=== PATIENT | female | born 1965 | race Caucasian/White ===

== ENCOUNTER 2017-10-01 22:59 | Emergency (ER) | payer MEDICAID, OTHER ==
[2017-10-01] MEDS ORDERED: TDAP ADULT 0.5 ML INJ (BOOSTRIX) IM ONE (23:50)
--- NOTE | 2017-10-01 23:50 | EDPHY ---
General Time Seen by Provider: 10/01/17 23:39 Narrative: CHIEF COMPLAINT: Laceration to thumb HISTORY OF PRESENT ILLNESS: Patient presents with complaints of left thumb laceration will cutting watermelon. This happened within the past hour. Moderate bleeding. Moderately painful. Improved at rest. Worse with moving the thumb. No numbness or tingling. No weakness. Not sure if she has any difficulty straightening or bending the thumb. No injury elsewhere. Tetanus is questionable. No other associated complaints or modifying factors. TIME OF INJURY: Less than 1 hr prior to arrival TETANUS STATUS: Uncertain MEDICAL/SURGICAL/SOCIAL HISTORY: Denies any pertinent medical history. Occasional smoker. 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 Brisk cap refill the left thumb. Neurological: A&O, light sensory symmetric in radial, ulnar and median distributions. Interossei strength symmetric. No wrist drop. Skin: Warm and dry, no rash. There is a 2.5 cm curvilinear laceration over the dorsum of the left thumb. No obvious extensor tendon injury. There is no injury to the nail bed. No pulsatile bleeding or foreign body. Extremities: Moderate tenderness in the left thumb over the laceration only. Range of motion of the fingers and hand symmetric DIFFERENTIAL DIAGNOSES: Including but not limited to laceration, complex laceration, laceration with tendon injury MDM: 11:50 p.m. Laceration to the left thumb that has been anesthetized. I will irrigate this and further evaluate for possible tendon injury. 12:25 a.m. Wound has been irrigated re-evaluated. I have a clear view of the wound bed, there is no injury to the extensor tendons of the thumb. 12:45 a.m. Wound has been closed without difficulty. Excellent approximation. She has full extension of the left thumb including at the MTP and interphalangeal joint. She will be placed in a bulky dressing with splint. We discussed wound care. We discussed ED precautions. We discussed returning here in 7-10 days for suture removal. I have answered all of her questions. I provided short course of pain medication by prepack. Discharged home in stable condition. PROCEDURE: Laceration repair Consent: Verbal Location: Left thumb, dorsum at the base of the MTP Length of repair: 2.5 cm Complexity: Complex Layer involvement: Single Anesthesia: Local. 1% lidocaine without epinephrine. 6 mL Irrigation: Extensive Debridement: None Procedure description: Following good anesthesia, the wound was copiously irrigated. Wound bed was explored with a sterile glove, and there is no foreign body noted. I do not appreciate any injury to the underlying extensor tendons. No foreign body. Wound borders were approximated well with good hemostasis. Tolerated well without complication. Suture/Staple material: 4-0 Prolene, 6 simple interrupted sutures Wound care: Routine as discussed Suture/Staple removal: 7-10 Days SUPERVISION: This patient was independently evaluated without direct involvement of or examination by the attending physician. ED Precautions: Worsening pain. Erythema, edema, cyanosis, pallor, paresthesia or anesthesia. - History Smoking Status: Heavy smoker - Objective Vital Signs: Initial Vital Signs Temperature (C) 97.9 F 10/01/17 23:02 Heart Rate 102 H 10/01/17 23:02 Respiratory Rate 16 10/01/17 23:02 Blood Pressure 146/108 H 10/01/17 23:02 O2 Sat (%) 98 10/01/17 23:02 O2 Delivery Mode Room Air Allergies/Adverse Reactions: No Known Allergies Allergy (Unverified 10/01/17 23:05) Home Medications: Medication Instructions Recorded NK [No Known Home Meds] 10/01/17 Departure - Departure Disposition: Home, Routine, Self-Care Clinical Impression: Laceration of left thumb without foreign body without damage to nail Qualifiers: Encounter type: initial encounter Qualified Code(s): S61.012A - Laceration without foreign body of left thumb without damage to nail, initial encounter Condition: Good Instructions: Laceration (ED), Care For Your Stitches (ED), Hydrocodone/ Acetaminophen (By mouth) Additional Instructions: 1. Keep your splint in place for the duration of the sutures 2. Remove her dressing once daily for evaluation of the wound in to wash the wound with soap water. 3. Thin layer bacitracin to the wound once daily 4. Follow up here in 7-10 days for suture removal 5. Return here for any signs of infection as discussed and demonstrated Referrals: Maria A Pulliam MD [Medical Doctor] - As per Instructions Physician,Emergency DeptMD [Medical Doctor] - As per Instructions
[2017-10-02 00:38] VITALS: BP 127/93
[2017-10-02] MEDS ORDERED: HYDROCOD/APAP 5/325 PREPACK#6 BTL TAKEHOME ONE (00:42)
== END 2017-10-02 01:00 | disposition home or self-care (01) ==
PROC: 0HQGXZZ Repair Left Hand Skin, External Approach (ICD-10-PCS; principal; 2017-10-01)
DX: S61.012A Laceration without foreign body of left thumb without damage to nail, initial encounter (principal); Z23 Encounter for immunization; W26.8XXA Contact with other sharp object(s), not elsewhere classified, initial encounter; Y93.89 Activity, other specified; F17.200 Nicotine dependence, unspecified, uncomplicated
CPT/HCPCS: L3925

== ENCOUNTER → 2018-04-13 | Outpatient (CLI) | payer MEDICAID ==
[~2018-04-13] MED LIST: IOHEXOL 300 mgI/ML (OMNIPAQUE) 150 ML BTL IV ONE
== END ==
LOC: FIMAGING 08:22
PROVIDERS: ATTEND Internal Medicine Gastroenterology
DX: D12.9 Benign neoplasm of anus and anal canal (principal)
CPT/HCPCS: Q9967

== ENCOUNTER → 2018-05-04 | Outpatient (CLI) | payer MEDICAID | LOC: FIMAGING 09:15 | PROVIDERS: ATTEND Physician Assistant Medical | DX: Z12.31 Encounter for screening mammogram for malignant neoplasm of breast (principal); Z85.048 Personal history of other malignant neoplasm of rectum, rectosigmoid junction, and anus ==

== ENCOUNTER 2018-06-02 19:37 | Emergency (ER) | payer MEDICAID ==
--- NOTE | 2018-06-02 20:04 | EDPHY ---
H & P Time Seen by Provider: 06/02/18 19:44 HPI/ROS: CHIEF COMPLAINT: Coughing and short of breath HISTORY OF PRESENT ILLNESS: Patient is tobacco smoker, was diagnosed with rectal cancer the end of March when she had blood in her stool. This was a [facility]. She has an oncologist there name Kiley Yony, phone [phone] I called left a message. She has had worsening cough since she was exposed to some chemical from a wood stain in March. She has had a worsening cough and shortness of breath and finished a 10 day course of prednisone 2 weeks ago. 2 weeks ago she had a chest CT at [facility] with IV contrast, it is unknown if this was an angiogram. She had a left axillary lymph node biopsy which on Thursday she was told could be cancer. She presents today with 2 weeks of pressure in her chest. 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 Much worse with exertion. This is not associated with hemoptysis or leg swelling or fever chills. REVIEW OF SYSTEMS: Eye: no change in vision ENT: no sore throat Cardiac: no chest pain or syncope Pulmonary: HPI Abdomen: no vomiting, diarrhea, abdominal pain Musculoskeletal: no back pain Skin: no rash Neuro: no headache Constitutional: no fever : no urinary symptoms A comprehensive 10 point review of systems is otherwise negative aside from elements mentioned in the history of present illness. PAST MEDICAL HISTORY: As in HPI Social history: Tobacco smoker General Appearance: Alert and conversant, cooperative. Eyes: No scleral icterus. ENT, Mouth: Normal mucous membranes. Respiratory: Normal respiratory effort, breath sounds equal, lungs are clear to auscultation. No wheezing and speaks in full sentences. Cardiovascular: Regular rate and rhythm. Gastrointestinal: Abdomen is soft and non tender. Neurological: Alert, face symmetric, normal motor and sensory in extremities. Skin: Warm and dry, no rashes. Musculoskeletal: No peripheral edema. Psychiatric: Not agitated. Emergency Department course/MDM: Patient presents with worsening severe cough and shortness of breath. Differential includes pulmonary embolism, pneumonia, chemical bronchitis, the CHF or ACS. Plan for EKG and troponin, D-dimer and BNP. 2037: D-dimer elevated, CT angiography discussed and consented. 2041: Discussed with Dr. Bhakta on phone, possibly adenocarcinoma lung as primary. Her CT of the chest was for staging and was not an angiogram. 2155: Discussed with hospitalist from [facility], requested admission, Dr. Tena refused to accept in transfer. 2204: Patient offered admission at [facility] but she declined. She would prefer to go home and follow up with her oncologist tomorrow. I warned her that I did not have a good solution for shortness of breath but we agreed to give her 6 hydrocodone for cough at night. I think ACS or pulmonary embolism or pneumonia is unlikely. Smoking Status: Heavy smoker Constitutional: Initial Vital Signs Temperature (C) 37.1 C 06/02/18 19:54 Heart Rate 80 06/02/18 19:54 Respiratory Rate 16 06/02/18 19:54 Blood Pressure 130/89 H 06/02/18 19:54 O2 Sat (%) 95 06/02/18 19:54 O2 Delivery Mode Room Air Allergies/Adverse Reactions: No Known Allergies Allergy (Unverified 10/01/17 23:05) Home Medications: Medication Instructions Recorded NK [No Known Home Meds] 10/01/17 Medical Decision Making - Diagnostics EKG Interpretation: 12-lead EKG interpreted by me; official reading is in computer system. My interpretation is sinus rhythm rate 74 no ischemic changes, normal. 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 Differential diagnosis includes sarcoidosis. General information for patients regarding this examination can be found at [email or web address]. If you have questions or comments about this report, please contact me at [phone] (hospital) or [phone] (cell). Imaging: Discussed imaging studies w/ body recall instructor Radiologist Differential Diagnosis: Differential diagnosis considered for shortness of breath including but not limited to pulmonary infectious process, COPD, asthma, pulmonary embolus and congestive heart failure. - Data Points Laboratory Results: Laboratory Results 06/02/18 20:13 06/02/18 20:13 06/02/18 06/02/18 06/02/18 20:18 20:13 20:13 WBC RBC Hgb Hct MCV MCH MCHC RDW Plt Count MPV Neut % (Auto) Lymph % (Auto) [place] % (Auto) Eos % (Auto) Baso % (Auto) Nucleat RBC Rel Count Absolute Neuts (auto) Absolute Lymphs (auto) Absolute Monos (auto) Absolute Eos (auto) Absolute Basos (auto) Absolute Nucleated RBC Immature Gran % Immature Gran # D-Dimer 1.28 ug/mLFEU H ug/mLFEU (0.00-0.50) Sodium 137 mEq/L mEq/L (135-145) Potassium 4.3 mEq/L mEq/L (3.5-5.2) Chloride 109 mEq/L mEq/L (97-110) Carbon Dioxide 22 mEq/l mEq/l (22-31) Anion Gap 6 mEq/L mEq/L (6-14) BUN 11 mg/dL mg/dL (7-23) Creatinine 0.7 mg/dL mg/dL (0.6-1.0) Estimated GFR > 60 Glucose 100 mg/dL mg/dL (70-100) Calcium 8.9 mg/dL mg/dL (8.5-10.4) POC Troponin I 0.00 ng/mL ng/mL (0.00-0.08) NT-Pro-B Natriuret Pep 165 pg/mL H pg/mL (0-125) 06/02/18 20:13 WBC 6.39 10^3/uL 10^3/uL (3.80-9.50) RBC 4.49 10^6/uL 10^6/uL (4.18-5.33) Hgb 13.5 g/dL g/dL (12.6-16.3) Hct 40.6 % % (38.0-47.0) MCV 90.4 fL fL (81.5-99.8) MCH 30.1 pg pg (27.9-34.1) MCHC 33.3 g/dL g/dL (32.4-36.7) RDW 12.4 % % (11.5-15.2) Plt Count 303 10^3/uL 10^3/uL (150-400) MPV 10.0 fL fL (8.7-11.7) Neut % (Auto) 76.1 % H % (39.3-74.2) Lymph % (Auto) 11.1 % L % (15.0-45.0) [place] % (Auto) 11.1 % % (4.5-13.0) Eos % (Auto) 1.1 % % (0.6-7.6) Baso % (Auto) 0.3 % % (0.3-1.7) Nucleat RBC Rel Count 0.0 % % (0.0-0.2) Absolute Neuts (auto) 4.86 10^3/uL 10^3/uL (1.70-6.50) Absolute Lymphs (auto) 0.71 10^3/uL L 10^3/uL (1.00-3.00) Absolute Monos (auto) 0.71 10^3/uL 10^3/uL (0.30-0.80) Absolute Eos (auto) 0.07 10^3/uL 10^3/uL (0.03-0.40) Absolute Basos (auto) 0.02 10^3/uL 10^3/uL (0.02-0.10) Absolute Nucleated RBC 0.00 10^3/uL 10^3/uL (0-0.01) Immature Gran % 0.3 % % (0.0-1.1) Immature Gran # 0.02 10^3/uL 10^3/uL (0.00-0.10) D-Dimer Sodium Potassium Chloride Carbon Dioxide Anion Gap BUN Creatinine Estimated GFR Glucose Calcium POC Troponin I NT-Pro-B Natriuret Pep Point of Care Test Results: Chemistry 06/02/18 20:18 POC Troponin I 0.00 ng/mL ng/mL (0.00-0.08) Departure - Departure Disposition: Home, Routine, Self-Care Clinical Impression: Cough Dyspnea Qualifiers: Dyspnea type: unspecified Qualified Code(s): R06.00 - Dyspnea, unspecified Condition: Good Instructions: Hydrocodone/Acetaminophen (By mouth), Dyspnea (ED) Additional Instructions: Follow-up with Dr. Bhakta your oncologist tomorrow. Robitussin or similar cough medicine during the day, narcotic at night. 1 hydrocodone at bedtime for cough. Bring the computer disc with the CT on it from today to your appointment tomorrow. Referrals: Juliana Garcia PA [Primary Care Provider] - As per Instructions
--- NOTE | 2018-06-02 20:13 | CPEKG ---
Test Reason : OPEN Blood Pressure : / mmHG Vent. Rate : 074 BPM Atrial Rate : 073 BPM P-R Int : 130 ms QRS Dur : 083 ms QT Int : 395 ms P-R-T Axes : 065 042 041 degrees QTc Int : 439 ms Sinus rhythm Confirmed by Sugar Parker ([id number]) on 06/02/2018 8:13:05 PM Referred By: SUGAR PARKER Confirmed By:Sugar Parker
[2018-06-02 20:22] LABS: PLATELET COUNT 303 10^3/uL (150-400)
[2018-06-02] MEDS ORDERED: IOPAMIDOL (ISOVUE-370) 150 ML BTL IV ONE (20:55)
[2018-06-02] MEDS ORDERED: HYDROCOD/APAP 5/325 PREPACK#6 BTL TAKEHOME ONE (22:15)
[2018-06-02 22:35] VITALS: BP 120/86
== END 2018-06-02 22:51 | disposition home or self-care (01) ==
DX: R05 Cough (principal); R06.00 Dyspnea, unspecified; R91.8 Other nonspecific abnormal finding of lung field; F17.210 Nicotine dependence, cigarettes, uncomplicated; Z85.048 Personal history of other malignant neoplasm of rectum, rectosigmoid junction, and anus
CPT/HCPCS: 84484-ER; Q9967

== ENCOUNTER 2018-06-05 04:18 | Emergency (ER) | payer MEDICAID ==
[2018-06-05] MEDS ORDERED: HYDROmorphONE/DILAUDID 2 MG/ML INJ IVP ONE ×2 (04:47→04:54)
[2018-06-05] MEDS ORDERED: KETOROLAC 15 MG/1 ML SDV IVP ONE (05:39)
[2018-06-05] MEDS ORDERED: LIDOCAINE 4%/MENTHOL 1% PATCH TD ONE (05:39)
[2018-06-05] MEDS ORDERED: DIAZEPAM 5 MG/ML 1 ML SYR IVP ONE (05:39)
--- NOTE | 2018-06-05 05:51 | EDPHY ---
H & P Stated Complaint: RIGHT RIB PAIN AFTER A BLOWING NOSE , LUNG CA. SEEN WED Time Seen by Provider: 06/05/18 04:26 HPI/ROS: HPI The patient presents with right-sided lower chest wall pain which has been present since about 4:00 a.m. When she awoke and was coughing. The patient has had a cough for the last 3 months. She has likely adenocarcinoma of the lung based on CT scan performed here 2 days ago. She frequently has coughing fit, awaking her about every hour throughout the night. She was having usual coughing fit and then had acute onset of right lower anterior rib pain which radiated toward her back. This was worse with movement in any position. She does not have any shortness of breath. REVIEW OF SYSTEMS 10 systems were reviewed and negative with the exception of the elements mentioned in the history of present illness. PMHx: Recent diagnosis of rectal cancer, CT scan findings concerning for lung CA a few days ago, followed by Dr. Bhakta, oncologist at [facility] Hx: Here with her , history of smoking PHYSICAL General Appearance: Alert, no distress Eyes: Pupils equal and round no pallor or injection ENT, Mouth: Mucous membranes moist Respiratory: There are no retractions, lungs are clear to auscultation Cardiovascular: Regular rate and rhythm Chest wall: There is tenderness to the anterior right chest wall Gastrointestinal: Abdomen is soft and non-tender, no masses, bowel sounds normal Neurological: A&O, moves all extremities Skin: Warm and dry, no rashes Musculoskeletal: Neck is supple non tender Extremities: symmetrical, full range of motion Psychiatric: Patient is oriented X 3, there is no agitation Source: Patient Exam Limitations: No limitations - Personal History Current Tetanus/Diphtheria Vaccine: Yes Current Tetanus Diphtheria and Acellular Pertussis (TDAP): Yes - Medical/Surgical History Hx Asthma: No Hx Chronic Respiratory Disease: No Hx Diabetes: No Hx Cardiac Disease: No Hx Renal Disease: No Hx Cirrhosis: No Hx Alcoholism: No Hx HIV/AIDS: No Hx Splenectomy or Spleen Trauma: No Other PMH: Rectal CA, LUNG CA - Social History Smoking Status: Heavy smoker Constitutional: Initial Vital Signs Temperature (C) 37.0 C 06/05/18 04:20 Heart Rate 86 06/05/18 04:20 Respiratory Rate 20 06/05/18 04:20 Blood Pressure 137/118 H 06/05/18 04:20 O2 Sat (%) 93 06/05/18 04:20 O2 Delivery Mode Room Air O2 (L/minute) 2 Allergies/Adverse Reactions: No Known Allergies Allergy (Unverified 06/05/18 04:23) Home Medications: Medication Instructions Recorded Hydrocodone-Acetamin 5-325 mg 06/05/18 Medical Decision Making - Diagnostics Imaging Results: Chest x-ray with right-sided rib series shows no obvious fracture, no pneumothorax, interpreted by me, radiology interpretation is pending. Differential Diagnosis: 53-year-old female with history of likely lung cancer, rectal cancer presents with right-sided chest pain in the setting of a coughing fit. Here, vital signs are normal, she does appear quite uncomfortable. She is given a dose of Dilaudid. She had a chest x-ray is with rib series and this was unremarkable. I suspect muscle spasm. Patient had improvement of pain with Dilaudid though still fairly persistent. She was given Toradol, Valium, lidocaine patch with good relief. She will be discharged home. - Data Points Medications Given: Discontinued Medications Hydromorphone HCl (Dilaudid) 0.5 mg IVP EDNOW ONE Stop: 06/05/18 04:48 Last Admin: 06/05/18 04:56 Dose: 0.5 mg Hydromorphone HCl (Dilaudid) 0.5 mg IVP EDNOW ONE Stop: 06/05/18 04:55 Last Admin: 06/05/18 04:57 Dose: 0.5 mg Departure - Departure Disposition: Home, Routine, Self-Care Clinical Impression: Chest wall pain Condition: Good Instructions: Chest Pain (ED) Additional Instructions: Please return to the emergency department if your worse in any way. You should follow up with your oncologist as planned next week. Referrals: Juliana Garcia PA [Primary Care Provider] - As per Instructions
[2018-06-05] MEDS ORDERED: HYDROCOD/APAP 5/325 PREPACK#6 BTL TAKEHOME ONE (05:52)
[2018-06-05] MEDS ORDERED: DIAZEPAM 5 MG PREPACK#4 BTL TAKEHOME ONE (06:06)
[2018-06-05 07:06] VITALS: BP 119/78
[2018-06-05] MEDS ORDERED: PATCH REMOVAL 1 EA PATCH TD SCH (21:00)
== END 2018-06-05 07:06 | disposition home or self-care (01) ==
DX: R07.89 Other chest pain (principal); R91.8 Other nonspecific abnormal finding of lung field; C20 Malignant neoplasm of rectum; F17.200 Nicotine dependence, unspecified, uncomplicated
CPT/HCPCS: 96374; J1170; J1885; J3360